=== PATIENT | female | born 1960 | race American Indian/Alaskan Native ===

== ENCOUNTER 2018-01-25 10:07 | Outpatient (CLI) | payer BC ==
--- NOTE | 2018-01-25 11:51 | Cat Scan Report ---
CT ABDOMEN AND PELVIS WITHOUT CONTRAST: 01/25/18 10:07:00 CLINICAL:Epigastric pain and ventral hernia. TECHNIQUE: Volumetric acquisition and 1.25 millimeter scan reconstructions from the lung bases through the pelvis. The study was performed with oral contrast. FINDINGS: Abdomen: A midline epigastric ventral fascial defect measures approximately 1.5 cm transverse dimension and is smaller in the craniocaudal dimension on the sagittal reformat. A small knuckle of omentum extends through the defect into the anterior abdominal wall. No bowel is identified in the hernia. There is also a small fat containing helical hernia. The lung bases are clear. Normal liver size, contour and density. No liver mass. Normal bile ducts and gallbladder. Moderate nonspecific gastric wall thickening and fold thickening involving the fundus and body of the stomach. No gastric mass or ulcer identified. The gastric wall measures approximately 12 mm maximum thickness. Prominent duodenal folds and prominent jejunal folds. The distal small bowel is not opacified with contrast and is unremarkable. Normal ascending, transverse and descending colon with stool throughout the colon. The appendix is normal. No mass, ascites or lymphadenopathy. Normal abdominal aorta and iliac arteries. Normal inferior vena cava. The adrenal glands and kidneys are normal. The renal collecting systems and ureters are nondilated. No renal mass, calculus or cyst. Pelvis: A mildly enlarged retroflexed uterus measures 11.5 x 8.1 x 7.8 cm. No uterine fibroid or mass identified. Ovaries are not clearly identified. No adnexal mass or free fluid. Normal rectum and sigmoid colon. IMPRESSION: 1. A small midline epigastric ventral hernia containing a small knuckle of omentum. 2. A small fat containing umbilical hernia. 3. Gastric wall thickening and nonspecific gastric fold thickening. The differential includes peptic ulcer disease and tumor. 4. Nonspecific fold thickening of the duodenum and proximal small bowel. 5. A mildly enlarged retroflexed uterus. 6. Ovaries are not identified.
== END 2018-01-25 10:08 | disposition home or self-care (01) ==
LOC: SPVIMAG 10:07
PROVIDERS: ATTEND Internal Medicine
DX: D25.9 Leiomyoma of uterus, unspecified (principal); K43.9 Ventral hernia without obstruction or gangrene; K42.9 Umbilical hernia without obstruction or gangrene; N85.2 Hypertrophy of uterus; M17.11 Unilateral primary osteoarthritis, right knee; M94.261 Chondromalacia, right knee; R10.13 Epigastric pain
CPT/HCPCS: 74176